=== PATIENT | female | born 1935 | race Asian ===

== ENCOUNTER 2022-04-14 14:55 | Inpatient (IN) | payer OTHER, MEDICAID ==
[~2022-04-14] VITALS: Ht 162.6 cm; Wt 65.8 kg
[2022-04-14 15:11] VITALS: BP_SYST 183
[2022-04-14 16:08] LABS: BASOPHILS % (AUTO) 0.2 % (0.0-2.0); EOSINOPHILS # (AUTO) 0.1 K/uL (0.0-0.4); EOSINOPHILS % (AUTO) 0.6 % (0.0-4.0); HEMATOCRIT 28.6 % (36-48); HEMOGLOBIN 9.1 g/dL (12.0-16.0); LYMPHOCYTES # (AUTO) 0.5 K/uL (1.0-5.5); LYMPHOCYTES % (AUTO) 4.5 % (20.5-51.5); MEAN CORPUSCULAR HEMOGLOBIN 30 pg (27-31); MEAN CORPUSCULAR HGB CONC 32 % (32-36); MEAN CORPUSCULAR VOLUME 95 fL (79.0-98.0); MONOCYTES # (AUTO) 0.5 K/uL (0.0-1.0); MONOCYTES % (AUTO) 4.7 % (1.7-9.3); NEUTROPHILS # (AUTO) 9.4 K/uL (1.8-7.7); PLATELET COUNT (AUTO) 331 K/uL (130-430); RED BLOOD CELL COUNT(AUTO) 3.01 MIL/uL (4.2-6.2); RED CELL DISTRIBUTION WIDTH 19.7 % (9.0-15.0); WHITE BLOOD COUNT (AUTO) 10.5 K/uL (4.8-10.8)
[2022-04-14] MEDS ORDERED: VANCOMYCIN HCL 1,000 MG in NS 250 ML IV ONE (16:30)
[2022-04-14] MEDS ORDERED: PIPERACILLIN/TAZO 3.375 GM in NS 50 ML IV ONE (16:30)
[2022-04-14] MEDS ORDERED: METO50TA7 GT (16:38)
[2022-04-14] MEDS ORDERED: CAR30 IV (16:38)
[2022-04-14] MEDS ORDERED: DORZ10DR9 EACH EYE (16:38)
[2022-04-14] MEDS ORDERED: AMIO200T66 GT (16:38)
[2022-04-14] MEDS ORDERED: HYDR-3610 GT (16:38)
[2022-04-14] MEDS ORDERED: FURO-150 GT (16:38)
[2022-04-14] MEDS ORDERED: LANS30CA53 GT (16:38)
[2022-04-14] MEDS ORDERED: ACET-73 GT (16:38)
[2022-04-14] MEDS ORDERED: ONDA2VIA4 IV (16:38)
[2022-04-14] MEDS ORDERED: INSU100V42 (16:38)
[2022-04-14] MEDS ORDERED: LIP20 GT (16:38)
[2022-04-14] MEDS ORDERED: LORA-258 IVP (16:38)
[2022-04-14] MEDS ORDERED: NUT.237L30 GT (16:38)
[2022-04-14] MEDS ORDERED: ALBU1.257 IH (16:38)
[2022-04-14 16:50] LABS: ANION GAP 6 (5-15); CALCIUM 7.8 mg/dL (8.4-11.0); CHLORIDE 102 mmol/L (98-107); CREATININE 1.47 mg/dL (0.55-1.30); GLUCOSE 237 mg/dL (70-99); POTASSIUM 4.9 mmol/L (3.5-5.1); SODIUM SERUM 137 mmol/L (136-145); UREA NITROGEN, BLOOD 51 mg/dL (8-21)
[2022-04-14 16:58] LABS: ALANINE AMINOTRANSFERASE 15 U/L (12-78); ALBUMIN 1.4 g/dL (3.4-4.8); ASPARTATE AMINOTRANSFERASE 39 U/L (10-37); TOTAL BILIRUBIN 0.4 mg/dL (0.0-1.0)
[2022-04-14] MEDS ORDERED: VANCOMYCIN HCL 1000 MG/VIAL IV ONE (17:34)
[2022-04-14] MEDS ORDERED: PIPERACILLIN/TAZOBACTAM 3.375 GM/VIAL (ZOSYN) IV ONE (17:35)
[2022-04-14] MEDS ORDERED: FUROSEMIDE 100 MG/10 ML VIAL IVP ONE (17:45)
[2022-04-14] MEDS ORDERED: ACETAMINOPHEN 500 MG TABLET GT PRN (18:45)
[2022-04-14] MEDS ORDERED: ONDANSETRON HCL 4 MG/2 ML VIAL IVP PRN (18:45)
[2022-04-14] MEDS ORDERED: MORPHINE 2 MG/ML INJ. SYRINGE IVP PRN (18:45)
[2022-04-15] MEDS: IPRATROPIUM/ALBUTEROL SULFATE 3 ML AMPUL.NEB (DUONEB) INH SCH
[2022-04-15] MEDS: PIPERACILLIN/TAZO 3.375 GM in NS 50 ML IV SCH ×3 (01:50→18:46)
[2022-04-15 02:49] VITALS: BP_SYST 146
[2022-04-15 03:42] VITALS: BP_SYST 123
[2022-04-15 07:42] LABS: BASOPHILS % (AUTO) 0.4 % (0.0-2.0); EOSINOPHILS % (AUTO) 0.2 % (0.0-4.0); HEMATOCRIT 25.8 % (36-48); HEMOGLOBIN 8.6 g/dL (12.0-16.0); LYMPHOCYTES # (AUTO) 0.9 K/uL (1.0-5.5); LYMPHOCYTES % (AUTO) 9.9 % (20.5-51.5); MEAN CORPUSCULAR HEMOGLOBIN 30 pg (27-31); MEAN CORPUSCULAR HGB CONC 33 % (32-36); MEAN CORPUSCULAR VOLUME 90 fL (79.0-98.0); MONOCYTES # (AUTO) 0.8 K/uL (0.0-1.0); MONOCYTES % (AUTO) 9.3 % (1.7-9.3); NEUTROPHILS # (AUTO) 7.2 K/uL (1.8-7.7); NEUTROPHILS % (AUTO) 80.2 % (40.0-70.0); PLATELET COUNT (AUTO) 264 K/uL (130-430); RED BLOOD CELL COUNT(AUTO) 2.87 MIL/uL (4.2-6.2); RED CELL DISTRIBUTION WIDTH 19.7 % (9.0-15.0); WHITE BLOOD COUNT (AUTO) 8.9 K/uL (4.8-10.8)
[2022-04-15 08:08] LABS: INR 1.2 (0.8-1.2); PROTHROMBIN TIME 12.8 SECS (9.5-12.5)
[2022-04-15 08:22] LABS: ANION GAP 8 (5-15); CALCIUM 7.7 mg/dL (8.4-11.0); CHLORIDE 105 mmol/L (98-107); CREATININE 1.38 mg/dL (0.55-1.30); GLUCOSE 157 mg/dL (70-99); POTASSIUM 3.9 mmol/L (3.5-5.1); SODIUM SERUM 142 mmol/L (136-145); UREA NITROGEN, BLOOD 53 mg/dL (8-21)
[2022-04-15 08:28] LABS: ALANINE AMINOTRANSFERASE 17 U/L (12-78); ALBUMIN 1.4 g/dL (3.4-4.8); ASPARTATE AMINOTRANSFERASE 32 U/L (10-37); CHOLESTEROL 60 mg/dL (<200); HDL CHOLESTEROL 16 mg/dL (>55); LDL CHOLESTEROL 38 mg/dL (<100); TOTAL BILIRUBIN 0.6 mg/dL (0.0-1.0); TRIGLYCERIDES 88 mg/dL (30-150)
[2022-04-15 09:00] VITALS: BP_SYST 139
[2022-04-15] MEDS ORDERED: IPRATROPIUM/ALBUTEROL SULFATE 3 ML AMPUL.NEB (DUONEB) INH PRN (09:00)
[2022-04-15] MEDS ORDERED: FUROSEMIDE 40 MG/4 ML VIAL IVP SCH (09:00)
[2022-04-15] MEDS ORDERED: NALOXONE HCL 0.4 MG/ML AMP (NARCAN) IVP PRN (09:15)
[2022-04-15 11:35] VITALS: BP_SYST 138
[2022-04-15] MEDS ORDERED: ONDANSETRON HCL 4 MG IV SCH (12:00)
[2022-04-15] MEDS ORDERED: LORazepam 1 MG TABLET GT SCH (12:00)
[2022-04-15] MEDS ORDERED: NON-FORMULARY MEDICATION (Albuterol Sulfate 1.25 MG) IH SCH (12:00)
[2022-04-15] MEDS ORDERED: LORazepam 2 MG/ML VIAL IVP PRN (12:30)
[2022-04-15] MEDS ORDERED: HYDROcodone/ACETAMIN 5-325 MG TAB (NORCO/ VICODIN) GT PRN (12:30)
[2022-04-15] MEDS ORDERED: dilTIAZem HCL IVP 5 MG/ML VIAL IV PRN (15:00)
[2022-04-15 15:28] VITALS: BP_SYST 130
[2022-04-15 20:07] VITALS: BP_SYST 129
[2022-04-15] MEDS: METOPROLOL TARTRATE 50 MG TABLET GT SCH (20:15)
[2022-04-15] MEDS: FUROSEMIDE 20 MG/2 ML VIAL IVP SCH (20:15)
[2022-04-15] MEDS: AMIODARONE HCL 200 MG TABLET GT SCH (20:15)
[2022-04-15] MEDS: ATORVASTATIN 20 MG TABLET GT SCH (20:15)
[2022-04-15] MEDS: DORZOLAMIDE 2% OPHTHALMIC SOLN 5ML OP SCH (20:16)
[2022-04-16 00:11] VITALS: BP_SYST 133
[2022-04-16] MEDS: PIPERACILLIN/TAZO 3.375 GM in NS 50 ML IV SCH ×3 (02:08→17:32)
[2022-04-16 07:48] VITALS: BP_SYST 135
[2022-04-16] MEDS: IPRATROPIUM/ALBUTEROL SULFATE 3 ML AMPUL.NEB (DUONEB) INH SCH ×2 (07:52→19:42)
[2022-04-16] MEDS: METOPROLOL TARTRATE 50 MG TABLET GT SCH ×2 (08:52→21:09)
[2022-04-16] MEDS: AMIODARONE HCL 200 MG TABLET GT SCH ×2 (08:52→21:09)
[2022-04-16] MEDS: DORZOLAMIDE 2% OPHTHALMIC SOLN 5ML OP SCH ×2 (08:53→21:10)
[2022-04-16] MEDS: FUROSEMIDE 20 MG/2 ML VIAL IVP SCH ×2 (08:53→21:08)
[2022-04-16 12:48] VITALS: BP_SYST 139
[2022-04-16 17:11] VITALS: BP_SYST 155
[2022-04-16 20:00] VITALS: BP_SYST 135
[2022-04-16] MEDS: ATORVASTATIN 20 MG TABLET GT SCH (21:09)
[2022-04-17] VITALS (7 sets, daily range): BP systolic 124–137
[2022-04-17] MEDS: IPRATROPIUM/ALBUTEROL SULFATE 3 ML AMPUL.NEB (DUONEB) INH SCH ×4 (01:38→20:19)
[2022-04-17] MEDS: PIPERACILLIN/TAZO 3.375 GM in NS 50 ML IV SCH ×2 (02:58→12:50)
[2022-04-17 07:41] LABS: BASOPHILS # (AUTO) 0.1 K/uL (0.0-0.2); BASOPHILS % (AUTO) 1.4 % (0.0-2.0); EOSINOPHILS # (AUTO) 0.1 K/uL (0.0-0.4); EOSINOPHILS % (AUTO) 0.9 % (0.0-4.0); HEMATOCRIT 25.7 % (36-48); HEMOGLOBIN 8.5 g/dL (12.0-16.0); LYMPHOCYTES # (AUTO) 0.9 K/uL (1.0-5.5); LYMPHOCYTES % (AUTO) 11.5 % (20.5-51.5); MEAN CORPUSCULAR HEMOGLOBIN 31 pg (27-31); MEAN CORPUSCULAR HGB CONC 33 % (32-36); MEAN CORPUSCULAR VOLUME 92 fL (79.0-98.0); MONOCYTES # (AUTO) 0.8 K/uL (0.0-1.0); MONOCYTES % (AUTO) 10.1 % (1.7-9.3); NEUTROPHILS % (AUTO) 76.1 % (40.0-70.0); PLATELET COUNT (AUTO) 252 K/uL (130-430); RED BLOOD CELL COUNT(AUTO) 2.78 MIL/uL (4.2-6.2); WHITE BLOOD COUNT (AUTO) 7.9 K/uL (4.8-10.8)
[2022-04-17 08:25] LABS: ALANINE AMINOTRANSFERASE 8 U/L (12-78); ALBUMIN 1.3 g/dL (3.4-4.8); ANION GAP 6 (5-15); ASPARTATE AMINOTRANSFERASE 27 U/L (10-37); CALCIUM 7.3 mg/dL (8.4-11.0); CHLORIDE 107 mmol/L (98-107); CREATININE 1.47 mg/dL (0.55-1.30); GLUCOSE 255 mg/dL (70-99); SODIUM SERUM 144 mmol/L (136-145); TOTAL BILIRUBIN 0.4 mg/dL (0.0-1.0); UREA NITROGEN, BLOOD 47 mg/dL (8-21)
[2022-04-17 08:53] LABS: POTASSIUM 2.8 mmol/L (3.5-5.1)
[2022-04-17] MEDS ORDERED: POTASSIUM CHLORIDE 20 MEQ/PKT PACKET PO ONE (09:00)
[2022-04-17] MEDS: FUROSEMIDE 20 MG/2 ML VIAL IVP SCH ×2 (09:18→22:18)
[2022-04-17] MEDS: METOPROLOL TARTRATE 50 MG TABLET GT SCH ×2 (09:20→22:18)
[2022-04-17] MEDS: AMIODARONE HCL 200 MG TABLET GT SCH ×2 (09:20→22:20)
[2022-04-17] MEDS: DORZOLAMIDE 2% OPHTHALMIC SOLN 5ML OP SCH ×2 (09:21→22:21)
[2022-04-17] MEDS: ATORVASTATIN 20 MG TABLET GT SCH (22:19)
[2022-04-18] VITALS (14 sets, daily range): BP systolic 119–162
[2022-04-18] MEDS: PIPERACILLIN/TAZO 3.375 GM in NS 50 ML IV SCH ×3 (01:40→17:59)
[2022-04-18] MEDS: IPRATROPIUM/ALBUTEROL SULFATE 3 ML AMPUL.NEB (DUONEB) INH SCH ×4 (02:04→20:23)
[2022-04-18] MEDS: AMIODARONE HCL 200 MG TABLET GT SCH ×2 (09:24→20:38)
[2022-04-18] MEDS: FUROSEMIDE 20 MG/2 ML VIAL IVP SCH ×2 (09:24→20:38)
[2022-04-18] MEDS: METOPROLOL TARTRATE 50 MG TABLET GT SCH ×2 (09:25→20:39)
[2022-04-18] MEDS: DORZOLAMIDE 2% OPHTHALMIC SOLN 5ML OP SCH ×2 (09:26→20:40)
[2022-04-18] MEDS: ATORVASTATIN 20 MG TABLET GT SCH (20:38)
[2022-04-19] MEDS: PIPERACILLIN/TAZO 3.375 GM in NS 50 ML IV SCH ×3 (01:11→16:55)
[2022-04-19 01:29] VITALS: BP_SYST 162
[2022-04-19] MEDS: IPRATROPIUM/ALBUTEROL SULFATE 3 ML AMPUL.NEB (DUONEB) INH SCH ×4 (03:34→20:46)
[2022-04-19 08:00] VITALS: BP_SYST 148
[2022-04-19] MEDS: DORZOLAMIDE 2% OPHTHALMIC SOLN 5ML OP SCH ×2 (09:48→22:02)
[2022-04-19] MEDS: METOPROLOL TARTRATE 50 MG TABLET GT SCH ×2 (09:49→21:45)
[2022-04-19] MEDS: FUROSEMIDE 20 MG/2 ML VIAL IVP SCH ×2 (09:50→21:44)
[2022-04-19] MEDS: AMIODARONE HCL 200 MG TABLET GT SCH ×2 (09:50→21:45)
[2022-04-19 10:59] LABS: ALBUMIN 1.3 g/dL (3.4-4.8); ANION GAP 6 (5-15); ASPARTATE AMINOTRANSFERASE 27 U/L (10-37); CALCIUM 7.3 mg/dL (8.4-11.0); CHLORIDE 112 mmol/L (98-107); GLUCOSE 280 mg/dL (70-99); SODIUM SERUM 149 mmol/L (136-145); TOTAL BILIRUBIN 0.4 mg/dL (0.0-1.0); UREA NITROGEN, BLOOD 43 mg/dL (8-21)
[2022-04-19 11:26] LABS: BASOPHILS % (AUTO) 0.4 % (0.0-2.0); EOSINOPHILS # (AUTO) 0.1 K/uL (0.0-0.4); EOSINOPHILS % (AUTO) 1.3 % (0.0-4.0); HEMATOCRIT 28.8 % (36-48); HEMOGLOBIN 9.5 g/dL (12.0-16.0); LYMPHOCYTES # (AUTO) 1.2 K/uL (1.0-5.5); LYMPHOCYTES % (AUTO) 12.1 % (20.5-51.5); MEAN CORPUSCULAR HEMOGLOBIN 31 pg (27-31); MEAN CORPUSCULAR HGB CONC 33 % (32-36); MEAN CORPUSCULAR VOLUME 93 fL (79.0-98.0); MONOCYTES # (AUTO) 0.7 K/uL (0.0-1.0); MONOCYTES % (AUTO) 7.8 % (1.7-9.3); NEUTROPHILS # (AUTO) 7.5 K/uL (1.8-7.7); NEUTROPHILS % (AUTO) 78.4 % (40.0-70.0); PLATELET COUNT (AUTO) 252 K/uL (130-430); RED BLOOD CELL COUNT(AUTO) 3.08 MIL/uL (4.2-6.2); RED CELL DISTRIBUTION WIDTH 20.2 % (9.0-15.0); WHITE BLOOD COUNT (AUTO) 9.6 K/uL (4.8-10.8)
[2022-04-19 12:00] VITALS: BP_SYST 134
[2022-04-19 12:01] LABS: ALANINE AMINOTRANSFERASE 10 U/L (12-78); POTASSIUM 2.6 mmol/L (3.5-5.1)
[2022-04-19] MEDS ORDERED: POTASSIUM CHLORIDE 60 MEQ in NS 250 ML IV ONE (14:15)
[2022-04-19] MEDS ORDERED: POTASSIUM CHLORIDE 20 MEQ TAB.PRT.SR GT ONE (14:15)
[2022-04-19 16:00] VITALS: BP_SYST 134
[2022-04-19] MEDS: POTASSIUM CHLORIDE 20 mEq in 100 mL (PREMIX) 100 ML x 2 doses IV SCH ×3 (16:00→21:46)
[2022-04-19 20:00] VITALS: BP_SYST 119
[2022-04-19] MEDS: ATORVASTATIN 20 MG TABLET GT SCH (21:44)
[2022-04-20] VITALS (8 sets, daily range): BP systolic 107–148
[2022-04-20] MEDS: PIPERACILLIN/TAZO 3.375 GM in NS 50 ML IV SCH ×2 (02:05→10:23)
[2022-04-20] MEDS: IPRATROPIUM/ALBUTEROL SULFATE 3 ML AMPUL.NEB (DUONEB) INH SCH ×3 (04:16→16:11)
[2022-04-20] MEDS: DORZOLAMIDE 2% OPHTHALMIC SOLN 5ML OP SCH (10:24)
[2022-04-20] MEDS: AMIODARONE HCL 200 MG TABLET GT SCH (10:24)
[2022-04-20] MEDS: METOPROLOL TARTRATE 50 MG TABLET GT SCH (10:24)
[2022-04-20] MEDS ORDERED: FUROSEMIDE 20 MG/2 ML VIAL IVP ONE (10:30)
[2022-04-21] MEDS ORDERED: FUROSEMIDE 20 MG/2 ML VIAL IVP SCH (09:00)
== END 2022-04-20 20:00 | DRG 207 ==
LOC: SED 14:55 → SIC 18:35 → STU 23:08
PROVIDERS: ADMIT Family Medicine; ATTEND Family Medicine
PROC: 5A1955Z Respiratory Ventilation, Greater than 96 Consecutive Hours (ICD-10-PCS; principal; 2022-04-14)
DX: J96.21 Acute and chronic respiratory failure with hypoxia (principal); J15.1 Pneumonia due to Pseudomonas; I13.0 Hypertensive heart and chronic kidney disease with heart failure and stage 1 through stage 4 chronic kidney disease, or unspecified chronic kidney disease; I48.92 Unspecified atrial flutter; Z99.11 Dependence on respirator [ventilator] status; I50.32 Chronic diastolic (congestive) heart failure; J91.8 Pleural effusion in other conditions classified elsewhere; I48.91 Unspecified atrial fibrillation; N18.2 Chronic kidney disease, stage 2 (mild); D64.9 Anemia, unspecified; R13.10 Dysphagia, unspecified; E11.22 Type 2 diabetes mellitus with diabetic chronic kidney disease; E78.5 Hyperlipidemia, unspecified; Z20.822 Contact with and (suspected) exposure to COVID-19; F03.90 Unspecified dementia, unspecified severity, without behavioral disturbance, psychotic disturbance, mood disturbance, and anxiety; Z74.01 Bed confinement status; Z86.73 Personal history of transient ischemic attack (TIA), and cerebral infarction without residual deficits; Z93.1 Gastrostomy status; Z79.899 Other long term (current) drug therapy; Z79.4 Long term (current) use of insulin; Z93.0 Tracheostomy status
CPT/HCPCS: 36415; 71045; 80053; 80061; 82803-TC; 82962; 83880; 84484; 85025; 85610-TC; 87040; 87070-TC; 87081; 87205-TC; 93005; 93306; 93971; 94002; 94003; 94640; 94760; 96365; 96368; 96375; 99291; 99292; G0378; J1940; J2543; J3370; J3480